=== PATIENT | male | born 1985 | race Caucasian/White ===

== ENCOUNTER 2021-04-01 19:31 | Emergency (ER) | payer OTHER, BC, SELFPAY ==
[2021-04-01 19:41] VITALS: BP 146/102; PULSE 91; RESP 17; O2SAT 98; BMI 50.2
[2021-04-01 19:59] VITALS: PULSE 92; RESP 20; TEMP 36.6; O2SAT 99; BMI 50.1
[2021-04-01 20:18] LABS: UTC Strep Screen (Rapid) Negative (Negative)
--- NOTE | 2021-04-01 21:06 | HMH.EDUTC ---
[facility] [place] Disposition Clinical Impression: Viral syndrome Asthma exacerbation Qualifiers: Asthma severity: unspecified severity Asthma persistence: unspecified Qualified Code(s): J45.901 - Unspecified asthma with (acute) exacerbation Pharyngitis Qualifiers: Pharyngitis/tonsillitis etiology: unspecified etiology Qualified Code(s): J02.9 - Acute pharyngitis, unspecified Disposition: Home, Self-Care Condition on Discharge: Good Instructions: Preventing the Spread of Coronavirus Discharge Instructions, DI for COVID-19 (Suspected or Confirmed ), DI for Asthma -- Adult Additional Instructions: Drink plenty of fluids. Take tylenol or ibuprofen for pain or fever. Take the medications as directed. Follow up with your regular doctor. GO TO THE ER FOR ANY WORSENING SYMPTOMS Quarantine until you know the results of your covid-19 test. If it is positive, the health department should call you and give you further instructions about your length of Quarantine and other things. Notify your school or workplace of your results and follow their instructions regarding return to work/school. The cough medication (promethazine dm) will make you drowsy, so don't drive or operate heavy machinery after taking it. Prescriptions: Albuterol Sulfate [Albuterol Sulfate Hfa] 2 puffs IH Q6HP PRN 30 Days #1 each PRN Reason: Shortness Of Breath Transmission Status: Pending to [facility] Promethazine/Dextromethorphan [Promethazine-Dm Syrup] 5 ml PO Q6HP PRN #240 ml PRN Reason: Cough Transmission Status: Pending to [facility] Amoxicillin/Potassium Clav [Augmentin 875-125 Tablet] 1 tab PO Q12H 10 Days #20 tab Transmission Status: Pending to [facility] methylPREDNISolone [Medrol] 4 mg PO DIRECTED 6 Days #21 packet Transmission Status: Pending to [facility] guaiFENesin [Mucinex 600mg tablet] 1 - 2 tab PO BIDP PRN #30 tab PRN Reason: Congestion Transmission Status: Pending to [facility] Referrals: Zulma Lucia APRN [Primary Care Provider] - Forms: Work/School Release Time of Disposition: 21:26 Medical Decision Making - Medical Records Medical records reviewed: No: I reviewed the patient's medical records. - Arnaldo Inquiry Pt receiving controlled substance: No Vital Signs: 04/01/21 19:41 04/01/21 19:59 04/01/21 21:08 Temperature 98 F 98 F Temperature Source Oral Pulse Rate 92 H Pulse Rate [Right Brachial] 91 H 92 H Respiratory Rate 17 20 20 Blood Pressure 146/102 H Blood Pressure [Right Arm] 146/102 H Blood Pressure Mean [Right Arm] 116 Blood Pressure Source [Right Arm] Automatic Cuff Blood Pressure Position [Right Arm] Sitting 02 Sat by Pulse Oximetry 98 99 Oxygen Delivery Method Room Air - Lab Data Lab Results 04/01/21 20:07: Strep Scn Rapid Clinic Negative Orders (Tests/Meds): ED MEDICATIONS Discontinued Medications Generic Name Dose Route Start Last Admin Trade Name Renny PRN Reason Stop Dose Admin Ceftriaxone Sodium 1 gm 04/01/21 21:10 04/01/21 21:21 Ceftriaxone 1gm Vial IM 04/01/21 21:11 1 gm ONCE ONE Administration Lidocaine HCl 2 ml 04/01/21 21:18 04/01/21 21:21 Lidocaine 1% Pf 2ml Ampule IM 04/01/21 21:19 2 ml ONCE ONE Administration Methylprednisolone Sodium Succinate 125 mg 04/01/21 21:10 04/01/21 21:21 Methylprednisolone Sod Succ 125mg Vial IM 04/01/21 21:11 125 mg ONCE ONE Administration ORDERS Category Date Time Status Covid-19 Nasal PCR ([facility]) Routine Lab 04/01/21 20:02 Received Strep Screen Confirmation Routine Micro 04/01/21 20:07 Received [facility] [place] HPI - General Stated complaint: sore throat, carlin congestion sob runny nose Time Seen by Provider: 04/01/21 21:11 Mode of Arrival: Ambulatory Source of Information: Patient Limitations: No Limitations Description of Symptoms (Recalled from Triage Doc. by RN): pt c/o a tickle in his throat, congestion/drainage, ear aches, dry
[2021-04-01 21:08] VITALS: BP 146/102; PULSE 92; RESP 20; TEMP 36.6
== END 2021-04-01 21:34 | disposition home or self-care (01) ==
PROVIDERS: Emergency Provider Nurse Practitioner Family; PCP Nurse Practitioner Family
DX: B34.9 Viral infection, unspecified (principal); Z20.822 Contact with and (suspected) exposure to COVID-19; J45.901 Unspecified asthma with (acute) exacerbation
CPT/HCPCS: 87880; 96372; 99202; C9803; G0463; U0003; U0005

== ENCOUNTER 2022-06-26 08:54 | Emergency (ER) | payer OTHER, SELFPAY ==
--- NOTE | 2022-06-26 09:42 | EXP.UTC ---
Discharge Plan Disposition Patient Disposition: Home, Self-Care Condition: Good Prescriptions Prescriptions: New ibuprofen [IBU] 800 mg tablet 800 mg PO Q8HP PRN (Reason: Moderate Pain) Qty: 30 0RF Referrals Follow up/Referrals: Isacc Moore DO [Staff Physician] - See instructions Provider,Referral, [Primary Care Provider] - See instructions Activity Restrictions/Add. Instructions Additional Instructions/Restrictions: Rest the extremity, Elevate the extremity as tolerated while you are resting. Take ibuprofen for pain. I sent in a prescription to your pharmacy. Follow up with Dr. Moore (orthopedics). I put in a referral but you need to call his office and schedule an appointment. Follow up with your regular doctor. GO TO THE ER FOR ANY WORSENING SYMPTOMS Clinical Impressions Clinical Impression: Biceps tendinitis of right upper extremity Stand Alone Forms Stand Alone Forms: Work/School Release Instructions Patient Instructions: DI for Tendinitis Discharge ED Provider: Audie Shah [facility] General Stated complaint: pain in Rt shoulder, no accident Time Seen by Provider: 06/26/22 09:42 History of Present Illness Provider Complaint: He states that he has had right upper arm pain for the past 2 days. It first started bothering him after he lifted a bunch of boxes. He denies any fall or other known injury. Related Data Previous Rx's Medication Instructions Recorded ibuprofen 800 mg tablet (IBU) 800 mg PO Q8HP PRN Moderate Pain 06/26/22 #30 tabs Allergies Allergy/AdvReac Type Severity Reaction Status Date / Time No Known Allergies Allergy Verified 06/26/22 09:54 [facility] Disclaimer: The information contained in this section may have been updated after the patient was seen, as this information can be updated by other users. Social History Smoking Status: Never smoker alcohol intake: never current occupational status: employed Travel in the last 8 weeks: None ROS Obtained: Yes All systems reviewed & no additional complaints except as documented Constitutional Constitutional: Denies chills and Denies fever(s) Musculoskeletal Musculoskeletal: Reports as per HPI Integumentary/Breasts Skin/Breast: Denies redness, Denies rash and Denies wounds Neurologic Neurologic: Denies paresthesias Physical Exam General General appearance: alert and in no apparent distress Head Head exam: atraumatic, normocephalic and normal inspection Eye Eye exam: Present normal appearance, PERRL and EOMI ENT ENT exam: Present normal exam, normal oropharynx, mucous membranes moist, TM's normal bilaterally and normal external ear exam Neck Neck exam: Present normal inspection, full ROM and trachea midline; Absent meningismus or lymphadenopathy Chest Chest inspection: Present normal inspection and symmetric chest wall rise; Absent tenderness Respiratory Respiratory exam: Present normal lung sounds bilaterally; Absent respiratory distress Cardiovascular Cardiovascular exam: Present regular rate and normal rhythm; Absent JVD Abdominal Exam Abdominal exam: Present soft and normal bowel sounds; Absent distention, tenderness or guarding Extremities Exam Extremities exam: Present normal capillary refill; Absent calf tenderness Expanded Upper Extremity Exam Right: Shoulder exam: Present full ROM; Absent tenderness, swelling, abrasion, laceration, ecchymosis, deformity, crepitus, dislocation, erythema or tenderness over AC joint Arm exam: Present tenderness and swelling; Absent full ROM, abrasion, laceration, ecchymosis, deformity, crepitus or erythema Elbow exam: Absent full ROM, tenderness, swelling, abrasion, laceration, ecchymosis, deformity, crepitus, dislocation, erythema, effusion, pain w/ pronation/supination or tenderness over radial head Forearm/Wrist exam: Present normal inspection and full ROM; Absent tenderness
[2022-06-26 09:45] VITALS: BP 170/98; PULSE 76; RESP 20; TEMP 37; O2SAT 98; BMI 59.3
[2022-06-26 10:55] VITALS: BP 170/98; PULSE 76; RESP 20; TEMP 37; O2SAT 98
== END 2022-06-26 10:54 | disposition home or self-care (01) ==
PROVIDERS: Emergency Provider Nurse Practitioner Family
DX: M75.21 Bicipital tendinitis, right shoulder (principal)
CPT/HCPCS: 99212; 99213; G0463

== ENCOUNTER → 2022-10-24 09:27 | Outpatient (CLI) | payer OTHER, SELFPAY ==
--- NOTE | 2022-10-24 09:33 | XR_ITS ---
FINAL REPORT CLINICAL HISTORY: Rt Elbow pain radiating up arms & into back, numbness/tingling, weakness FINDINGS: RIGHT ELBOW SERIES Three views of the right elbow were obtained. There is no acute fracture or dislocation. The joint spaces are preserved. There is no soft tissue abnormality. IMPRESSION: No acute abnormality. Reviewed, Interpreted and Dictated by Costa Copeland III, MD Transcribed by Gareth Hawk Authenticated and [facility]
--- NOTE | 2022-10-24 09:33 | XR_ITS ---
FINAL REPORT CLINICAL HISTORY: lt Elbow pain radiating up arms & into back, numbness/tingling, weakness FINDINGS: LEFT ELBOW SERIES Three views of the left elbow were obtained. There is no acute fracture or dislocation. The joint spaces are preserved. There is no soft tissue abnormality. IMPRESSION: No acute abnormality. Reviewed, Interpreted and Dictated by Costa Copeland III, MD Transcribed by Gareth Hawk Authenticated and [facility]
== END ==
PROVIDERS: PCP Family Medicine; Visit Provider Orthopaedic Surgery
DX: M25.522 Pain in left elbow (principal); M25.521 Pain in right elbow
CPT/HCPCS: 73080

== ENCOUNTER 2023-01-16 15:00 | Outpatient (RCR) | payer OTHER, SELFPAY ==
--- NOTE | 2022-11-27 08:48 | HMH.OTOPEV ---
OT Inpatient Evaluation Rehab OT Outpatient Eval Start: 11/27/22 08:37 Freq: Status: Active Protocol: Document 11/27/22 08:37 RMJOANNA (Rec: 11/27/22 08:48 [id number] E-signed By Noemi Forman, OT Outpatient Therapy Subjective History Subjective History Pt is a 37 year old male who reports to therapy for initial evaluation to left elbow for medial epicondylitis. Pt reports he has been experiencing pain in left elbow for ~3 months. He explains he has had issues with medial epicondylitis years before when he was lifting weights. He now works fulltime at [employer] that requires lifting, pushing, and pulling heavy objects. During these repetitive duties he began experiencing pain on the medial aspect of left elbow. Pt is right hand dominant. Pt 's AROM is within functional limits. His pain is intermittent, but reaches an 8 /10 during daily work. Pt's strength is slightly declined due to pain during MMT. Therapist will continue to see patient in order to address left elbow deficits. Chief Complaint Pain,Weakness Symptom Type Ache,Throb,Sharp,Dull,Stabbing Symptoms Relieved By Rest/Positioning Symptoms Aggravated By Physical Activity,Lifting Prior Functional Limitations None Current Functional Limitations Reaching,Lifting,Housework Symptom Description Intermittent,Activity Dependent Level of pain today (0-10) 0 Pain scale - at its best (0-10) 0 Pain scale - at its worst (0-10) 8 Shoulder/Elbow Eval Shoulder Objective Measurements Elbow Objective Measurements Elbow ROM Left Elbow Extension Active Range of Motion ( 0 degrees degrees) Elbow Flexion Active Range of Motion ( 128 degrees degrees) Elbow Pronation of Forearm Range of 90 degrees Motion (degrees) Elbow Supination of Forearm Range of 90 degrees Motion (degrees) Elbow MMT Elbow Flexion Strength Grade 4- Good- Elbow Extension Strength Grade 4- Good- Wrist/Hand Eval [employer]/Pinch S
--- NOTE | 2022-12-27 08:47 | HMH.RHREAS ---
Rehab Reassessment Rehab OP Re-assessment Start: 11/27/22 08:36 Freq: Status: Active Protocol: Document 12/27/22 08:36 CHEVY (Rec: 12/27/22 08:47 CHEVY [id number]) E-signed By Noemi Forman OT QuickDASH Activities Please rate your ability to do the following activities in the last week by selecting the number below the appropriate response. 1. Open a tight or new jar. No difficulty 2. 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 3. Carry a shopping bag or briefcase. No difficulty 4. Wash your back. No difficulty 5. Use a knife to cut food. Mild difficulty 6. Recreational activities in which you No difficulty take some force or impact through your arm, shoulder, or hand (e.g., golf, hammering, tennis, etc.). 7. During the past week, to what extent Not at all has your arm, shoulder or hand problem interfered with your normal social activities with family, friends, neighbors or groups? 8. During the past week, were you Moderately limited limited in your work or other regular daily activites as a result of your arm, shoulder or hand problem? 9. Arm, shoulder or hand pain. Mild 10. Tingling (pins and needles) in your None arm, shoulder or hand. 11. During the past week, how much Mild difficulty difficulty have you had sleeping because of the pain in your arm, shoulder or hand? Quick DASH 16 Work Module (optional) The following questions ask about the impact of your arm, shoulder or hand problem on your ability to work (including homemaking if that is your main work role). Please indicate what your job/work is: [employer] Do you work? Yes 1. Using your usual technique for your No difficulty work? 2. Doing your usual work because of arm, Moderate difficulty shoulder or hand pain? 3. Doing your work as well as you would Mild difficulty like? 4. Spending your usual amount of time Mild difficulty doing your work? Quick Dash Work Module Score 8 Rehab Re-assessment Subjective Subjective If I have pain I stretch it and it helps. Objective Objective Notes Pt has only been seen two times since initial evaluation . Visits have been scheduled, but pt has missed these appointments. During therapy session, pt receives PROM manual stretching to left elbow in all planes. He also engages in AROM, AAROM, and strengthening exercises. Modalities are provided in
== END 2023-01-16 15:05 | disposition home or self-care (01) ==
LOC: OT 15:00
PROVIDERS: Visit Provider Orthopaedic Surgery
DX: M77.02 Medial epicondylitis, left elbow (principal)
CPT/HCPCS: 97010; 97014; 97033; 97035; 97110; 97140; 97164; 97166; G0283

== ENCOUNTER 2024-04-17 08:49 | Outpatient (CLI) | payer OTHER, SELFPAY ==
[2024-04-17 09:56] LABS: Basophils % 0.9 % (0.1-2.0); Eosinophils % 1.6 % (0.1-12.0); Hematocrit 43.8 % (42.0-52.0); Hemoglobin 13.7 g/dL (14.1-18.0); Lymphocytes # 1.9 K/mm3 (0.7-4.5); Lymphocytes % 20.5 % (10-50); Mean Corpuscular HGB Conc 31.3 g/dL (31.8-35.4); Mean Corpuscular Hemoglobin 26.9 pg (27.0-31.2); Mean Corpuscular Volume 85.9 fl (80-94); Mean Platelet Volume 11.2 fl (7.4-10.4); Monocytes % 6.8 % (1.7-9.3); Neutrophils # 6.4 K/mm3 (1.8-7.8); Neutrophils % 69.8 % (37.0-80.0); Platelet Count 273 K/mm3 (142-424); Red Cell Distribution Width 14.7 % (11.5-17.5); White Blood Count 9.1 K/mm3 (4.8-10.8)
[2024-04-17 09:57] LABS: Basophils # 0.1 K/mm3 (0-0.2); Eosinophils # 0.2 K/mm3 (0.0-0.4); Monocytes # 0.6 K/mm3 (0.1-1.0)
[2024-04-17 10:18] LABS: Alanine Aminotransferase 27 U/L (12-78); Albumin/Globulin Ratio 1.6 (1.1-1.8); Alkaline Phosphatase 56 U/L (38-126); Aspartate Amino Transferase 27 U/L (17-59); Bilirubin,Total 0.8 mg/dl (0.2-1.3); Blood Urea Nitrogen 17 mg/dl (9-20); Carbon Dioxide 30 mmol/L (22.0-30.0); Chloride 107 mmol/L (98-107); Chol/HDL Ratio 5.8 (1-3.5); Cholesterol 174 mg/dl (140-200); Estimated Glomerular Filt Rate 75 ml/min (>60); GFR (African American) 91 ML/MIN (>60); Globulin 2.5 g/dL (1.3-3.2); Glucose 99 mg/dl (74-100); HDL Cholesterol 30 mg/dl (40-60); Sodium 141 mmol/L (136-145); Total Protein,Serum 6.5 g/dl (6.3-8.2); Triglycerides 110 mg/dl (30-150); VLDL Cholesterol 22 mg/dL (0-40)
[2024-04-17 10:29] LABS: Direct LDL Cholesterol 106.99 mg/dL (100-129)
[2024-04-17 10:34] LABS: Free T4 (Free Thyroxine) 1.08 ng/dl (0.78-2.19)
[2024-04-17 10:35] LABS: 25-OH Vitamin D, Total 31.3 ng/mL (30-100)
[2024-04-17 11:52] LABS: Anion Gap 8.6 mEq/L (5-15); Potassium 4.6 mmoL/L (3.5-5.1)
== END 2024-04-17 23:59 | disposition home or self-care (01) ==
LOC: UTC.OUT 08:53
PROVIDERS: PCP Nurse Practitioner Family; Visit Provider Nurse Practitioner Family
DX: E55.9 Vitamin D deficiency, unspecified (principal); I10 Essential (primary) hypertension; Z68.44 Body mass index [BMI] 60.0-69.9, adult
CPT/HCPCS: 36415; 80050; 80053; 80061; 82306; 84439; 84443; 85025

== ENCOUNTER 2024-07-01 19:52 | Emergency (ER) | payer OTHER, SELFPAY ==
[2024-07-01] VITALS (7 sets, daily range): BP systolic 139–183; BP diastolic 77–99; PULSE 70–97; RESP 18–22; TEMP 36.6–37.2; O2SAT 93–100; BMI 40.8; BMI 65.9
--- NOTE | 2024-07-01 20:03 | PC.NURSE ---
initial triage entered on the wrong patient as 2 patients were moved to same room assignment. This patient is currently in traige with no chest pain.
--- NOTE | 2024-07-01 20:27 | XR_ITS ---
PROCEDURE INFORMATION: Exam: XR Right Elbow Exam date and time: 07/01/2024 8:27 PM Age: 39 years old Clinical indication: Pain; Elbow; Right; Additional info: Heavy axial traction, popping sensation, pain TECHNIQUE: Imaging protocol: Radiologic exam of the right elbow. Views: 3 or more views. COMPARISON: CR XR ELBOW RT MIN 3V 10/24/2022 9:35 AM FINDINGS: Bones/joints: No acute fracture. No dislocation. No significant joint effusion. Soft tissues: Unremarkable. IMPRESSION: No fracture.
--- NOTE | 2024-07-01 20:41 | PC.NURSE ---
Pt back from xray
--- NOTE | 2024-07-01 21:45 | HMH.EDGENADL ---
Discharge Plan Disposition Patient Disposition: Home, Self-Care Prescriptions Prescriptions: No Action lisinopril 10 mg tablet 10 mg PO DAILY Patient Comments: TAKE 1 TABLET BY MOUTH ONCE DAILY metformin 500 mg tablet 500 mg PO BID Referrals Follow up/Referrals: Aleshia Coles APRN [Primary Care Provider] - See instructions Activity Restrictions/Add. Instructions Additional Instructions/Restrictions: Follow-up with your family doctor as needed for his visit to the emergency department. Take Tylenol 1000 mg every 6 hours (4 times daily) and ibuprofen 400 mg every 6 hours (4 times daily) as needed with food and water to prevent GI upset and kidney damage. Clinical Impressions Clinical Impression: Sprain of right elbow Qualifiers: Encounter type: initial encounter Qualified Code(s): S53.401A - Unspecified sprain of right elbow, initial encounter Stand Alone Forms Stand Alone Forms: Work/School Release Print Language Print Language: Bulgarian Discharge ED Provider: Norris Jane General Adult HPI General Chief complaint: Extremity Injury, Upper Stated complaint: AO 07/01/24 1200 Injury right arm Time Seen by Provider: 07/01/24 20:09 Mode of Arrival: Ambulatory Source of Information: Patient Description of Symptoms (Recalled from ER Triage Doc. by RN): Pt presents with c/o right arm pain after lifting an object at work. Pt states he felt a pop and ripping sensation in his arm. History of Present Illness HPI narrative: Please note that above description of symptoms, in this electronic medical record under categorization of recalled from ER triage doctor by RN are reflective of an initial nursing assessment, however, is not reflective of my full history and physical exam that was personally taken and clarified. Consequentially, this preceding description of symptoms, which may include the patient's categorized chief complaint in the EMR, do not reflect my personal clinical impression, and the ultimate description of history of present illness and patient stated complaints should be deferred to this section of the note. Unless stated otherwise or congruent with this section of the note, additional signs, symptoms, or incongruence should be interpreted as inaccurate with my clinical impression. Related Data Home Medications ?Medication ?Instructions ?Recorded ?Confirmed lisinopril 10 mg tablet 10 mg PO DAILY 10/09/22 07/01/24 metformin 500 mg tablet 500 mg PO BID 10/24/22 07/01/24 Allergies Allergy/AdvReac Type Severity Reaction Status Date / Time No Known Allergies Allergy Verified 01/21/23 13:59 [facility] Disclaimer: The information contained in this section may have been updated after the patient was seen, as this information can be updated by other users. Social History Smoking Status: Never smoker alcohol intake: never current occupational status: employed Travel in the last 8 weeks: None Have you lived/traveled outside [place] in past 30 days?: No Contact w/someone who lives/traveled outside US past 30 days?: No Exposure to someone with infectious disease in past 14 days?: No Do you have a fever (greater than 100.4 F or 38 C)?: No Have you tested positive for COVID-19: No Exposed to someone with COVID-19 in past 14 days?: No Do you have a sore throat?: No Do you have a cough?: No Do you have any weakness?: No Do you have any diarrhea?: No Are you experiencing any unusual bleeding?: No Do you have any muscle aches/pain?: No Do you have any abdominal pain?: No Are you experiencing loss of taste or smell?: No Other Medical History Have you received the Flu Vaccine for this season: No Have you received the Pneumonia Vaccine: No ROS Obtained: Yes All systems reviewed & no additional complaints except as documented Physical Exam General General appearance: alert Head Head exam: atraumatic and normocephalic Eye Eye exam: Present normal appearance, PERRL and EOMI Neck Neck exam: Present normal inspection, full ROM and trachea midline Respiratory Respiratory exam: Absent respiratory distress, wheezes, stridor, accessory muscle use or prolonged expiratory phase Cardiovascular Cardiovascular exam: Present other (Pulses equal symmetric in upper and lower extremities) Abdominal Exam Abdominal exam: Present soft; Absent distention, tenderness or pulsatile mass Extremities Exam Extremities exam: Absent edema Neurological Exam Neurological exam: Present alert, oriented X3 and CN II-XII intact; Absent motor sensory deficit Skin Skin exam: Present warm and dry; Absent diaphoresis or erythema Medical Decision Making Medical Records Medical records reviewed: Yes I reviewed the patient's medical records. Screening: Per USPSTF and CDC recommendations, given the prevalence of disease in our region, it is our hospital?s policy to screen for HIV and viral Hepatitis for all patients aged 18 and over and those with ongoing risk factors. Arnaldo Inquiry Pt receiving controlled substance: No Arnaldo was queried for this patient: No Vital Signs: 07/01/24 19:59 07/01/24 20:03 07/01/24 20:18 Temperature 99 F 98 F Temperature Source Oral Oral Pulse Rate 79 Pulse Rate [Radial] 97 H 83 Respiratory Rate 22 18 Blood Pressure 145/85 H Blood Pressure [Right Arm] 154/99 H 183/83 H Blood Pressure Mean [Right Arm] 117 116 Blood Pressure Source Blood Pressure Source [Right Arm] Automatic Cuff Blood Pressure Position Blood Pressure Position [Right Arm] Sitting Sitting 02 Sat by Pulse Oximetry 96 100 98 Oxygen Delivery Method Room Air Room Air 07/01/24 20:30 07/01/24 21:00 07/01/24 22:03 Temperature 98.2 F Temperature Source Oral Pulse Rate 73 70 70 Pulse Rate [Radial] Respiratory Rate 20 Blood Pressure 140/82 139/77 141/87 H Blood Pressure [Right Arm] Blood Pressure Mean [Right Arm] Blood Pressure Source Automatic Cuff Blood Pressure Source [Right Arm] Blood Pressure Position Sitting Blood Pressure Position [Right Arm] 02 Sat by Pulse Oximetry 97 95 Oxygen Delivery Method Room Air Room Air 07/01/24 22:04 Temperature 98 F Temperature Source Pulse Rate 73 Pulse Rate [Radial] Respiratory Rate 18 Blood Pressure 141/87 H Blood Pressure [Right Arm] Blood Pressure Mean [Right Arm] Blood Pressure Source Blood Pressure Source [Right Arm] Blood Pressure Position Sitting Blood Pressure Position [Right Arm] 02 Sat by Pulse Oximetry Oxygen Delivery Method Room Air Orders (Tests/Meds): ORDERS Category Date Time Status Elbow XR right minimum 3 views [XR elbow RT min 3V] Exams 07/01/24 20:27 Completed Stat Medical Decision Narrative: This is a 39-year-old male presenting to the emergency department after injuring his right elbow. Patient states that he was lifting something at work and felt a pop in his right elbow which resulted in persistent pain after the incident. Able to range, but tender with maximal flexion and supination/pronation. Came in for further evaluation. On arrival, very clinically well-appearing. Range of motion intact, neurovascularly intact. Differential includes sprain, subluxation, dislocation, among others. X-rays to be obtained. On independent interpretation, these were negative for any acute bony abnormality. Small amount of edema laterally, but no joint effusion. I feel this is consistent with subluxation versus elbow sprain. Because patient at baseline without signs or symptoms of clinical decompensation, deemed appropriate for discharge. Results were relayed to patient who voiced understanding and were agreeable to outpatient management and follow up. I discussed my clinical impression with patient and answered all questions. At this time, the evidence for any other entities in the differential is insufficient to warrant any further testing or ED observation. This was explained as well. Advisory was given that persistent or worsening symptoms require further evaluation. I confirmed the understanding of this discussion. Choral Director disclaimer Much of this encounter note is an electronic patient relations coordinator spoken language to printed text. Electronic patient relations coordinator of the spoken language may permit errors. Although I have reviewed the note, some errors may still exist. Critical Care Critical Care Time Critical Care Time: No
== END 2024-07-01 22:05 | disposition home or self-care (01) ==
PROVIDERS: Emergency Provider Emergency Medicine; PCP Nurse Practitioner Family
DX: S53.401A Unspecified sprain of right elbow, initial encounter (principal); X50.0XXA Overexertion from strenuous movement or load, initial encounter
CPT/HCPCS: 73080; 99283

== ENCOUNTER 2024-07-08 23:05 | Emergency (ER) | payer OTHER, SELFPAY ==
[2024-07-08 23:11] VITALS: BP 140/93; PULSE 89; O2SAT 95
--- NOTE | 2024-07-08 23:14 | ED_ITS ---
Discharge Plan Disposition Patient Disposition: Home, Self-Care Prescriptions Prescriptions: No Action lisinopril 10 mg tablet 10 mg PO DAILY Patient Comments: TAKE 1 TABLET BY MOUTH ONCE DAILY metformin 500 mg tablet 500 mg PO BID Referrals Follow up/Referrals: Aleshia Coles APRN [Primary Care Provider] - See instructions Activity Restrictions/Add. Instructions Additional Instructions/Restrictions: Please follow-up with your primary care provider. Please return to the emergency department if you develop any new or worsening symptoms or become concerned for your health. Clinical Impressions Clinical Impression: Abdominal pain, RUQ Stand Alone Forms Stand Alone Forms: Work/School Release Instructions Patient Instructions: DI for Acute Abdominal Pain Print Language Print Language: Wolof Discharge ED Provider: Jose Sheikh General Adult HPI General Chief complaint: Abdominal Pain Stated complaint: abd pain, nausea, vomiting Time Seen by Provider: 07/08/24 23:11 History of Present Illness HPI narrative: 39-year-old male with history of obesity and type 2 diabetes presents for right upper quadrant pain. He has had bouts of this pain intermittently and is planning on getting a outpatient ultrasound through his PCP. However, tonight his pain became significantly worse and was associated with nausea vomiting and dry heaving. He denies any chest pain or shortness of breath. Denies any history of abdominal surgery. Denies fever chills or other systemic symptoms. Pain is tolerable now. Related Data Home Medications ?Medication ?Instructions ?Recorded ?Confirmed lisinopril 10 mg tablet 10 mg PO DAILY 10/09/22 07/01/24 metformin 500 mg tablet 500 mg PO BID 10/24/22 07/01/24 Allergies Allergy/AdvReac Type Severity Reaction Status Date / Time No Known Allergies Allergy Verified 01/21/23 13:59 [facility] Disclaimer: The information contained in this section may have been updated after the patient was seen, as this information can be updated by other users. Social History Smoking Status: Never smoker alcohol intake: never current occupational status: employed Travel in the last 8 weeks: None Have you lived/traveled outside [place] in past 30 days?: No Contact w/someone who lives/traveled outside [place] past 30 days?: No Exposure to someone with infectious disease in past 14 days?: No Do you have a fever (greater than 100.4 F or 38 C)?: No Have you tested positive for COVID-19: No Exposed to someone with COVID-19 in past 14 days?: No Do you have a sore throat?: No Do you have a cough?: No Do you have any weakness?: No Do you have any diarrhea?: No Are you experiencing any unusual bleeding?: No Do you have any muscle aches/pain?: No Do you have any abdominal pain?: Yes Are you experiencing loss of taste or smell?: No Other Medical History Have you received the Flu Vaccine for this season: No Have you received the Pneumonia Vaccine: No ROS Obtained: Yes All systems reviewed & no additional complaints except as documented Physical Exam General General appearance: alert, in no apparent distress and obese Head Head exam: atraumatic and normocephalic Eye Eye exam: Present normal appearance, PERRL and EOMI ENT ENT exam: Present normal oropharynx and normal external ear exam Neck Neck exam: Present normal inspection and full ROM Chest Chest inspection: Present normal inspection and symmetric chest wall rise; Absent tenderness Respiratory Respiratory exam: Present normal lung sounds bilaterally; Absent respiratory distress Cardiovascular Cardiovascular exam: Present regular rate and normal rhythm Abdominal Exam Abdominal exam: Present soft and tenderness (Right upper quadrant); Absent distention or guarding Extremities Exam Extremities exam: Present normal inspection; Absent edema or joint swelling Back Exam Back exam: Present normal inspection; Absent tenderness Neurological Exam Neurological exam: Present alert and oriented X3; Absent motor sensory deficit Psychiatric Psychiatric exam: Present normal affect and normal mood Skin Skin exam: Present warm, dry and normal color Lymphatic Lymphatic Findings: no adenopathy Medical Decision Making Medical Records Medical records reviewed: Yes I reviewed the patient's medical records. Screening: Per USPSTF and CDC recommendations, given the prevalence of disease in our region, it is our hospital?s policy to screen for HIV and viral Hepatitis for all patients aged 18 and over and those with ongoing risk factors. Arnaldo Inquiry Pt receiving controlled substance: No Arnaldo was queried for this patient: No Vital Signs: 07/08/24 23:11 07/08/24 23:17 07/08/24 23:30 Temperature 98.1 F Temperature Source Oral Pulse Rate 89 81 Pulse Rate [Left Radial] 81 Respiratory Rate 18 Blood Pressure 140/93 H 161/85 H Blood Pressure [Right Arm] 140/93 H Blood Pressure Mean [Right Arm] 108 Blood Pressure Source [Right Arm] Automatic Cuff Blood Pressure Position [Right Arm] Sitting 02 Sat by Pulse Oximetry 95 95 96 Oxygen Delivery Method Room Air 07/09/24 01:33 Temperature 98.4 F Temperature Source Pulse Rate 88 Pulse Rate [Left Radial] Respiratory Rate 20 Blood Pressure 158/78 H Blood Pressure [Right Arm] Blood Pressure Mean [Right Arm] Blood Pressure Source [Right Arm] Blood Pressure Position [Right Arm] 02 Sat by Pulse Oximetry Oxygen Delivery Method Room Air Lab Data Lab results reviewed: Yes I reviewed the patient's lab results. Lab Results 07/08/24 23:27: WBC 10.7, RBC 5.19, Hgb 14.0 L, Hct 43.9, MCV 84.6, MCH 27.0, MCHC 31.9, RDW 15.0, Plt Count 304, MPV 10.6 H, Neut % (Auto) 63.5, Lymph % (Auto) 24.0, [place] % (Auto) 9.0, Eos % (Auto) 1.9, Baso % (Auto) 0.9, Neut # (Auto) 6.8, Lymph # (Auto) 2.6, [place] # (Auto) 1.0, Eos # (Auto) 0.2, Baso # (Auto) 0.1, Sodium 138, Potassium 3.9, Chloride 103, Carbon Dioxide 29, Anion Gap 9.9, BUN 17, Creatinine 1.10, Estimated Creat Clear 107, Estimated GFR 75, Est GFR ( Amer) 91, Glucose 109 H, Calcium 9.1, Total Bilirubin 0.6, AST 28, ALT 32, Alkaline Phosphatase 59, Total Protein 7.3, Albumin 4.4, Globulin 2.9, Albumin/Globulin Ratio 1.5, Lipase 47, HCV Ab JASON w/Rflx PCR Qn Negative, HIV Ag/Ab Combo Qual Negative 07/08/24 23:27 07/08/24 23:27 Orders (Tests/Meds): ED MEDICATIONS Discontinued Medications Generic Name Dose Route Start Last Admin Trade Name Freq PRN Reason Stop Dose Admin Iopamidol 75 ml 07/09/24 00:10 07/09/24 00:11 Iopamidol-370 (76%);100ml Bottle IV 07/09/24 00:11 75 ml ONCE ONE Administration Sodium Chloride 10 ml 07/09/24 00:10 07/09/24 00:11 Sodium Chloride 0.9% 10ml Syr (Rad Only) IV 08/08/24 00:09 10 ml NEEDED PRN Administration Maintain IV Site ORDERS Category Date Time Status CT abdomen pelvis w con Stat Cat Scan 07/08/24 23:22 Completed CXR --portable [XR chest portable] Stat Exams 07/08/24 23:23 Completed CBC w/Auto Diff [Complete Blood Count Auto Diff] Stat Lab 07/08/24 23:27 Completed CMP [Comprehensive Metabolic Panel] Stat Lab 07/08/24 23:27 Completed HIV Combo Stat Lab 07/08/24 23:27 Completed Hepatitis C Ab Qual. W/ RFX Stat Lab 07/08/24 23:27 Completed Lipase Stat Lab 07/08/24 23: Completed Medical Decision Narrative: 39-year-old male with history of obesity and type 2 diabetes presents for right upper quadrant pain nausea vomiting. History was obtained via interactive discussion with patient. On arrival, patient is [afebrile, hemodynamically stable, satting appropriately, alert, oriented x4, GCS 15], moving all extremities spontaneously. Full physical exam performed and significant for mild right upper quadrant tenderness. A right upper quadrant ultrasound was attempted but was nondiagnostic due to body habitus. I was unable to visualize the gallbladder at all. Differential includes but is not limited to cholecystitis, choledocholithiasis cholangitis, gastroenteritis, GERD, stomach ulcer, pneumonia. Patient declined any medication interventions at this time. Workup initiated including CBC CMP lipase chest x-ray CT abdomen and pelvis with IV contrast. On re-evaluation, patient [remains afebrile, HD stable.] Reports some improvement in his symptoms. Laboratory workup independently interpreted by me and significant for normal liver function, normal lipase, no leukocytosis. Imaging independently interpreted by me and significant for no radiopaque stones, no gallbladder dilation, no pericholecystic fluid or gallbladder wall thickening. Image quality is suboptimal given habitus. Chest x-ray shows no pneumonia. See radiology read for full review of final results. Given patient history, exam and workup, there is no evidence of surgical or other pathology based on workup. Image quality is certainly suboptimal given body habitus, but there is no evidence of a infection or obstruction at this point. These findings were communicated to patient. He was discharged in stable condition with return precautions. He has follow-up already planned through his PCP. Procedures Risk/Benefits of Procedure(s) Were Explained: Yes Critical Care Critical Care Time Critical Care Time: No
[2024-07-08 23:17] VITALS: BP 140/93; PULSE 81; RESP 18; TEMP 36.7; O2SAT 95; BMI 64.2
--- NOTE | 2024-07-08 23:22 | CT_ITS ---
PROCEDURE INFORMATION: Exam: CT Abdomen And Pelvis With Contrast Exam date and time: 07/09/2024 12:05 AM Age: 39 years old Clinical indication: Abdominal pain; Additional info: Ruq pain, n/v TECHNIQUE: Imaging protocol: Computed tomography of the abdomen and pelvis with contrast. Radiation optimization: All CT scans at this facility use at least one of these dose optimization techniques: automated exposure control; mA and/or kV adjustment per patient size (includes targeted exams where dose is matched to clinical indication); or iterative reconstruction. Contrast material: ISOVUE; Contrast volume: 75 ml; Contrast route: IV; COMPARISON: CR XR CHEST PORTABLE 07/08/2024 11:32 PM FINDINGS: Tubes, catheters and devices: Study is somewhat limited by significant beam hardening artifact secondary to patient's size. Liver: Normal. No mass. Gallbladder and biliary ducts: Normal. No calcified stones. No ductal dilation. Pancreas: Normal. No ductal dilation. Spleen: Normal. No splenomegaly. Adrenal glands: Normal. No mass. Kidneys and ureters: Normal. No hydronephrosis. Stomach and bowel: Unremarkable. No obstruction. No mucosal thickening. Appendix: No evidence of appendicitis. Intraperitoneal space: Unremarkable. No free air. No significant fluid collection. Vasculature: Unremarkable. No abdominal aortic aneurysm. Lymph nodes: Unremarkable. No enlarged lymph nodes. Urinary bladder: Unremarkable as visualized. Reproductive: Unremarkable as visualized. Bones/joints: Severe degenerative disc space narrowing with disc bulge and uncovertebral spurring at the lumbosacral junction producing severe narrowing of the bilateral L5 neural foramina. Mild degenerative disc changes throughout the lower thoracic spine. No vertebral body compression. No acute fracture. Soft tissues: Unremarkable. IMPRESSION: Somewhat limited study as described. No definite acute abnormality. Significant degenerative changes of the lumbosacral junction.
--- NOTE | 2024-07-08 23:23 | XR_ITS ---
PROCEDURE INFORMATION: Exam: XR Chest Exam date and time: 07/08/2024 11:32 PM Age: 39 years old Clinical indication: Pain; Chest pressure; Additional info: Ruq pain TECHNIQUE: Imaging protocol: Radiologic exam of the chest. Views: 1 view. COMPARISON: No relevant prior studies available. FINDINGS: Lungs: Unremarkable. No consolidation. Pleural spaces: Unremarkable. No pleural effusion. No pneumothorax. Heart/Mediastinum: Unremarkable. No cardiomegaly. Bones/joints: Unremarkable. IMPRESSION: No acute findings.
[2024-07-08 23:30] VITALS: BP 161/85; PULSE 81; O2SAT 96
[2024-07-08 23:35] LABS: Basophils # 0.1 K/mm3 (0-0.2); Basophils % 0.9 % (0.1-2.0); Eosinophils # 0.2 K/mm3 (0.0-0.4); Eosinophils % 1.9 % (0.1-12.0); Hematocrit 43.9 % (42.0-52.0); Lymphocytes # 2.6 K/mm3 (0.7-4.5); Mean Corpuscular HGB Conc 31.9 g/dL (31.8-35.4); Mean Corpuscular Volume 84.6 fl (80-94); Mean Platelet Volume 10.6 fl (7.4-10.4); Neutrophils # 6.8 K/mm3 (1.8-7.8); Neutrophils % 63.5 % (37.0-80.0); Platelet Count 304 K/mm3 (142-424); Red Blood Count 5.19 M/mm3 (4.60-6.20); White Blood Count 10.7 K/mm3 (4.8-10.8)
[2024-07-08 23:39] LABS: Albumin Level 4.4 g/dl (3.5-5.0); Chloride 103 mmol/L (98-107)
[2024-07-08 23:40] LABS: Potassium 3.9 mmoL/L (3.5-5.1); Sodium 138 mmol/L (136-145)
[2024-07-08 23:42] LABS: Alanine Aminotransferase 32 U/L (12-78); Alkaline Phosphatase 59 U/L (38-126); Anion Gap 9.9 mEq/L (5-15); Aspartate Amino Transferase 28 U/L (17-59); Bilirubin,Total 0.6 mg/dl (0.2-1.3); Blood Urea Nitrogen 17 mg/dl (9-20); Carbon Dioxide 29 mmol/L (22.0-30.0); Creatinine Clearance Estimated 107 mL/min (50-200); Estimated Glomerular Filt Rate 75 ml/min (>60); GFR (African American) 91 ML/MIN (>60)
[2024-07-08 23:43] LABS: Albumin/Globulin Ratio 1.5 (1.1-1.8); Calcium 9.1 mg/dl (8.4-10.2); Globulin 2.9 g/dL (1.3-3.2); Glucose 109 mg/dl (74-100); Lipase 47 U/L (23-300); Total Protein,Serum 7.3 g/dl (6.3-8.2)
--- NOTE | 2024-07-08 23:56 | PC.NURSE ---
photonics technician states he is unsure if pt will fit through CT scanner. Pt back to CT room at this time to assess.
[2024-07-09] MEDS: SODIUM CHLORIDE 0.9% 10ML SYR (RAD ONLY) 10 ML IV (00:11)
[2024-07-09] MEDS: IOPAMIDOL-370 (76%);100ML BOTTLE 75 ML IV (00:11)
[2024-07-09 00:51] LABS: HIV Combo NEGATIVE (Negative)
[2024-07-09 00:59] LABS: Hepatitis C Ab Qual. W/ RFX NEGATIVE (Negative)
[2024-07-09 01:33] VITALS: BP 158/78; PULSE 88; RESP 20; TEMP 36.9; O2SAT 99
== END 2024-07-09 01:34 | disposition home or self-care (01) ==
PROVIDERS: Emergency Provider Emergency Medicine; PCP Nurse Practitioner Family
DX: R10.11 Right upper quadrant pain (principal); R11.2 Nausea with vomiting, unspecified; E66.9 Obesity, unspecified; Z68.44 Body mass index [BMI] 60.0-69.9, adult; E11.9 Type 2 diabetes mellitus without complications
CPT/HCPCS: 71045; 74177; 80053; 83690; 85025; 86803; 87389; 99285; Q9967

== ENCOUNTER 2024-08-16 09:30 | Outpatient (CLI) | payer OTHER, SELFPAY ==
--- NOTE | 2024-08-16 09:33 | XR_ITS ---
FINAL REPORT CLINICAL HISTORY: Rt elbow pain, nki FINDINGS: RIGHT ELBOW Three views were obtained. There is no acute fracture or dislocation. Joint spaces are maintained. There is no joint effusion or other acute soft tissue abnormality. IMPRESSION: No acute bony abnormality. Reviewed, Interpreted and Dictated by Steph Ramírez MD Transcribed by Jenelle Galicia Authenticated and [facility]
== END 2024-08-16 23:59 | disposition home or self-care (01) ==
LOC: RAD 09:31
PROVIDERS: PCP Nurse Practitioner Family; Visit Provider Physician Assistant
DX: M25.521 Pain in right elbow (principal); S53.401A Unspecified sprain of right elbow, initial encounter
CPT/HCPCS: 73080

== ENCOUNTER 2024-08-30 12:38 | Outpatient (CLI) | payer OTHER, SELFPAY ==
--- NOTE | 2024-08-30 13:00 | MR_ITS ---
FINAL REPORT CLINICAL HISTORY: Rt Elbow Pain. heard a pop [id number] ago. lateral and medial sided elbow pain, limited rom COMPARISON: None FINDINGS: Multiplanar and multisequence imaging of the right elbow was obtained without contrast. BONES: There is no acute fracture, contusion or pathologic marrow replacement. Joint space is preserved. There is no joint effusion or loose body. LIGAMENTS: The radial collateral ligament and lateral ulnar collateral ligament are intact. The ulnar collateral ligament proper is intact and there is no fracture of the sublime tubercle. TENDON/MUSCLES: The common extensor tendon is normal in size and signal intensity at its insertion on the lateral epicondyle. The common flexor tendon is normal in size and signal intensity at its insertion on the medial epicondyle. There is a high-grade near-complete tear of the biceps tendon from the bicipital tuberosity. There may be a few fibers intact. Fluid is seen surrounding the distal aspect of the tendon, but there is no significant retraction into the distal arm. The triceps tendon and brachialis tendon are intact and within normal limits. Signal intensity within the muscles themselves is normal. OTHER SOFT TISSUES: No joint effusion. The nerves and vascular structures appear normal. IMPRESSION: High-grade partial/near complete biceps tendon tear from the radial tuberosity. Fluid and edema surrounds the distal tendon. Reviewed, Interpreted and Dictated by Steph Ramírez MD Transcribed by Fernanda Jeffers Authenticated and . [facility]
== END 2024-08-30 23:59 | disposition home or self-care (01) ==
LOC: RAD 12:39
PROVIDERS: PCP Nurse Practitioner Family; Visit Provider Physician Assistant
DX: M25.521 Pain in right elbow (principal); S59.901A Unspecified injury of right elbow, initial encounter
CPT/HCPCS: 73221

== ENCOUNTER 2024-09-27 12:23 | Outpatient (CLI) | payer OTHER, SELFPAY ==
[2024-09-27 14:06] LABS: Albumin Level 4.3 g/dl (3.5-5.0); Chloride 105 mmol/L (98-107); Potassium 4.9 mmoL/L (3.5-5.1); Sodium 140 mmol/L (136-145)
[2024-09-27 14:09] LABS: Alanine Aminotransferase 28 U/L (12-78); Albumin/Globulin Ratio 1.5 (1.1-1.8); Alkaline Phosphatase 53 U/L (38-126); Anion Gap 10.9 mEq/L (5-15); Aspartate Amino Transferase 31 U/L (17-59); Bilirubin,Total 0.5 mg/dl (0.2-1.3); Blood Urea Nitrogen 19 mg/dl (9-20); Calcium 9.6 mg/dl (8.4-10.2); Carbon Dioxide 29 mmol/L (22.0-30.0); Estimated Glomerular Filt Rate 95 ml/min (>60); GFR (African American) 115 ML/MIN (>60); Globulin 2.8 g/dL (1.3-3.2); Glucose 93 mg/dl (74-100); Total Protein,Serum 7.1 g/dl (6.3-8.2)
[2024-09-30 03:37] LABS: ALT (SGPT) P5P 26 IU/L (0-55); AST (SGOT) P5P 22 IU/L (0-40); Alpha 2-Macroglobulins, Qn 170 mg/dL (110-276); Apolipoprotein A-1 124 mg/dL (101-178); Bilirubin, Total 0.3 mg/dL (0.0-1.2); Cholesterol, Total 175 mg/dL (100-199); Fibrosis Score 0.07 (0.00-0.21); GGT 17 IU/L (0-65); Glucose 86 mg/dL (70-99); Haptoglobin 192 mg/dL (17-317); Steatosis Score 0.29 (0.00-0.40); Triglycerides 132 mg/dL (0-149)
== END 2024-09-27 23:59 | disposition home or self-care (01) ==
LOC: LAB 12:23
PROVIDERS: PCP Nurse Practitioner Family; Visit Provider Nurse Practitioner Family
DX: K76.0 Fatty (change of) liver, not elsewhere classified (principal)
CPT/HCPCS: 36415; 80053; 82172; 82247; 82465; 82947; 82977; 83010; 83883; 84450; 84460; 84478

== ENCOUNTER 2024-11-08 07:00 | Outpatient (RCR) | payer OTHER, SELFPAY | END 2024-11-08 23:59 | disposition home or self-care (01) | LOC: PT.CARL 07:00 | PROVIDERS: Visit Provider Orthopaedic Surgery | DX: S46.211A Strain of muscle, fascia and tendon of other parts of biceps, right arm, initial encounter (principal) | CPT/HCPCS: 97110; 97161 ==

== ENCOUNTER 2024-12-20 08:00 | Outpatient (RCR) | payer OTHER, SELFPAY | END 2024-12-20 23:59 | disposition home or self-care (01) | LOC: PT.CARL 08:00 | PROVIDERS: Visit Provider Orthopaedic Surgery | DX: S46.211A Strain of muscle, fascia and tendon of other parts of biceps, right arm, initial encounter (principal) | CPT/HCPCS: 20560; 97032; 97110; 97140; 97164; 97530 ==

== ENCOUNTER 2025-01-03 07:51 | Outpatient (RCR) | payer OTHER, SELFPAY | END 2025-01-10 10:16 | disposition home or self-care (01) | LOC: PT.CARL 07:51 | PROVIDERS: Visit Provider Orthopaedic Surgery | DX: S46.211A Strain of muscle, fascia and tendon of other parts of biceps, right arm, initial encounter (principal); X58.XXXA Exposure to other specified factors, initial encounter | CPT/HCPCS: 97032; 97110; 97530 ==